=== PATIENT | female | born 1990 | race Caucasian/White ===

== ENCOUNTER 2023-03-27 12:46 | Emergency (ER) | payer OTHER ==
[~2023-03-27] VITALS: Ht 170.2 cm; Wt 200.0 kg
[2023-03-27 13:17] VITALS: BP 233/123
[2023-03-27 15:22] LABS: BASOPHILS # (AUTO) 0.1 X10'3 (0-0.2); BASOPHILS % (AUTO) 0.5 % (0-1); EOSINOPHILS # (AUTO) 0.2 X10'3 (0-0.9); EOSINOPHILS % (AUTO) 1.5 % (0-6); HEMATOCRIT 30.1 % (35.0-45.0); HEMOGLOBIN 9.9 g/dl (12.0-16.0); LYMPHOCYTES # (AUTO) 1.7 X10'3 (1.1-4.8); MEAN CORPUSCULAR HEMOGLOBIN 30.5 PG (27.0-31.0); MEAN CORPUSCULAR HGB CONC 33.1 g/dL (33.0-36.5); MEAN CORPUSCULAR VOLUME 92.2 FL (78-98); MEAN PLATELET VOLUME 8.4 FL (7.4-10.4); MONOCYTES # (AUTO) 0.9 X10'3 (0-0.9); MONOCYTES % (AUTO) 7.1 % (2-12); NEUTROPHILS # (AUTO) 10.1 X10'3 (1.8-7.7); NEUTROPHILS % (AUTO) 77.9 % (42-75); PLATELET COUNT 292 X10'3 (140-440); RED BLOOD COUNT 3.26 X10'6 (4.20-5.60); RED CELL DISTRIBUTION WIDTH 13.4 % (11.5-14.5)
[2023-03-27 15:38] LABS: ALANINE AMINOTRANSFERASE 152 U/L (12-78); ALBUMIN 3.9 G/DL (3.4-5.0); ALKALINE PHOSPHATASE 59 IU/L (46-116); ANION GAP 9 (8-16); ASPARTATE AMINO TRANSFERASE 79 U/L (10-37); BILIRUBIN,TOTAL 0.7 MG/DL (0.1-1.0); BLOOD UREA NITROGEN 13 MG/DL (7-18); BUN/CREATININE RATIO 15.5 (10.0-20.0); CHLORIDE 102 MMOL/L (99-107); CREATININE 0.84 MG/DL (0.40-0.90); GLUCOSE 99 MG/DL (70-104); POTASSIUM 3.4 MMOL/L (3.5-5.1); SODIUM 136 MMOL/L (135-145); TOTAL CARBON DIOXIDE 24.8 MMOL/L (24-32); TOTAL PROTEIN 7.7 G/DL (6.4-8.2); eGFR 79 ML/MIN
--- NOTE | 2023-03-27 17:11 | NUR ---
Vascular notified for DVT rule out
[2023-03-27] MEDS ORDERED: cephalexin 500mg capsule PO ONE (17:25)
[2023-03-27] MEDS ORDERED: CEPH-585 PO (18:51)
[2023-03-27] MEDS ORDERED: FERR-39 PO (18:51)
== END 2023-03-27 19:01 | disposition home or self-care (01) ==
LOC: ER 12:48
DX: D64.9 Anemia, unspecified (principal); L02.416 Cutaneous abscess of left lower limb; N93.9 Abnormal uterine and vaginal bleeding, unspecified
CPT/HCPCS: 36415; 71045; 80053; 83880; 84484; 85025; 85379; 93005; 93971; 99285

== ENCOUNTER 2023-07-13 08:24 | Emergency (ER) | payer OTHER ==
[~2023-07-13] VITALS: Ht 170.2 cm; Wt 181.8 kg
[~2023-07-13 08:24] MED LIST: FERR-39 PO
[2023-07-13 08:30] VITALS: BP 152/87; PULSE 105; RESP 18; TEMP 97.6; O2SAT 98
[2023-07-13] MEDS ORDERED: DOXY-356 PO (09:28)
== END 2023-07-13 09:41 | disposition home or self-care (01) ==
LOC: ER 08:24
DX: L03.115 Cellulitis of right lower limb (principal); Z79.2 Long term (current) use of antibiotics
CPT/HCPCS: 99283